=== PATIENT | female | born 1960 | race African-American/Black ===

== ENCOUNTER 2023-02-20 15:18 | Emergency (ER) | payer OTHER ==
[~2023-02-20] VITALS: Ht 170.2 cm; Wt 70.0 kg
[~2023-02-20 15:18] MED LIST: ACET1TAB14 PO; CLON0.2T PO; LEVO25TA7 PO
[2023-02-20 15:27] VITALS: BP 94/69; PULSE 78; RESP 18; TEMP 98.6; O2SAT 98
[2023-02-20] MEDS ORDERED: ONDANSETRON HCL 4MG/2ML INJ IV STA (15:29)
[2023-02-20] MEDS ORDERED: SODIUM CHLORIDE 0.9% 1,000 ML IV ONE (15:30)
[2023-02-20] MEDS ORDERED: FAMOTIDINE 20MG/2ML VIAL IV ONE (15:30)
[2023-02-20 17:04] LABS: PROTHROMBIN TIME 10.4 sec (9.6-11.0)
[2023-02-20 17:08] LABS: BASOPHILS % 0.5 % (0.0-2.0); EOSINOPHILS % 0.7 % (0.0-5.0); HEMATOCRIT. 41.8 % (36.0-48.0); HEMOGLOBIN. 13.3 g/dL (12.0-16.0); LYMPHOCYTES % 13.8 % (20.0-50.0); MEAN CORPUSCULAR HEMOGLOBIN 30.1 pg (28.0-32.0); MEAN CORPUSCULAR HGB CONC 31.9 g/dL (31.0-37.0); MEAN CORPUSCULAR VOLUME 94.5 fL (81.0-99.0); MEAN PLATELET VOLUME 10.9 fl (7.4-10.4); PLATELET 251 x1000/uL (130-400); RED BLOOD CELL COUNT 4.43 mill/uL (4.2-5.4); WHITE BLOOD COUNT 12.2 x1000/uL (4.5-11.0)
[2023-02-20 17:40] LABS: ALANINE AMINOTRANSFERASE 13 IU/L (10-49); ALBUMIN 4.3 g/dL (3.2-4.8); ASPARTATE AMINOTRANSFERASE 25 IU/L (<34); BILIRUBIN TOTAL 0.7 mg/dL (0.1-1.0); CALCIUM 9.7 mg/dL (8.7-10.4); CARBON DIOXIDE 24 mEq/L (21-32); CHLORIDE 103 mEq/L (98-107); CREATININE 0.7 mg/dL (0.6-1.0); ETHANOL BLOOD < 10 mg/dL (<10); GLUCOSE 96 mg/dL (70-105); POTASSIUM 3.6 mEq/L (3.5-5.1); PROTEIN TOTAL 8.4 g/dL (6.0-8.3); SODIUM 138 mEq/L (136-145); UREA NITROGEN BLOOD 7 mg/dL (9-23)
[2023-02-20 17:50] LABS: TROPONIN I HIGH SENSITIVITY < 4 ng/L (3.0-34)
== END 2023-02-20 16:15 | disposition home or self-care (01) ==
LOC: ER 15:18
DX: R19.7 Diarrhea, unspecified (principal); R05.9 Cough, unspecified; M19.90 Unspecified osteoarthritis, unspecified site; I10 Essential (primary) hypertension; E03.9 Hypothyroidism, unspecified; J40 Bronchitis, not specified as acute or chronic
CPT/HCPCS: 80053; 80320; 83690; 85025; 85610; 84484; 36415; 71045; 74176; 99284; J7030; G0480

== ENCOUNTER 2024-01-05 10:41 | Emergency (ER) | payer MEDICAID ==
[~2024-01-05] VITALS: Ht 160 cm; Wt 54.0 kg
[~2024-01-05 10:41] MED LIST changes: -ACET1TAB14 PO; +AMLO10TA80 PO; -CLON0.2T PO; +LOSA25TA26 PO
[2024-01-05 10:52] VITALS: BP 154/105; TEMP 98.9; O2SAT 98
[2024-01-05 10:57] VITALS: PULSE 122; RESP 16; O2SAT 99
[2024-01-05 11:54] LABS: BASOPHILS % 0.7 % (0.0-2.0); DIFFERENTIAL COMMENT 0; EOSINOPHILS % 1.8 % (0.0-5.0); HEMATOCRIT. 46.2 % (36.0-48.0); HEMOGLOBIN. 15.2 g/dL (12.0-16.0); LYMPHOCYTES % 24.3 % (20.0-50.0); MEAN CORPUSCULAR HEMOGLOBIN 32.6 pg (28.0-32.0); MEAN CORPUSCULAR HGB CONC 32.8 g/dL (31.0-37.0); MEAN CORPUSCULAR VOLUME 99.2 fL (81.0-99.0); MEAN PLATELET VOLUME 11.8 fl (7.4-10.4); MONOCYTES % 5.8 % (2.0-8.0); NEUTROPHILS % 67.4 % (40.0-76.0); PLATELET 198 x1000/uL (130-400); RED BLOOD CELL COUNT 4.66 mill/uL (4.2-5.4); RED CELL DISTRIBUTION WIDTH 13.2 % (11.6-14.6); WHITE BLOOD COUNT 4.4 x1000/uL (4.5-11.0)
[2024-01-05 11:58] LABS: CHLORIDE 107 mEq/L (98-107); SODIUM 146 mEq/L (136-145)
[2024-01-05 11:59] LABS: CARBON DIOXIDE 30 mEq/L (21-32)
[2024-01-05 12:00] LABS: CALCIUM 10.3 mg/dL (8.7-10.4)
[2024-01-05 12:04] LABS: CREATININE 0.8 mg/dL (0.6-1.0); GLUCOSE 79 mg/dL (70-105)
[2024-01-05 12:05] LABS: UREA NITROGEN BLOOD 7 mg/dL (9-23)
[2024-01-05 12:59] LABS: TROPONIN I HIGH SENSITIVITY 6 ng/L (3.0-34)
== END 2024-01-05 12:02 | disposition left against medical advice (07) ==
LOC: ER 10:41
DX: R07.89 Other chest pain (principal); Z53.21 Procedure and treatment not carried out due to patient leaving prior to being seen by health care provider
CPT/HCPCS: 36415; 71045; 80048; 83880; 84484; 85025; 93005

== ENCOUNTER 2024-01-24 12:23 | Emergency (ER) | payer MEDICAID, OTHER ==
[~2024-01-24] VITALS: Ht 167.6 cm; Wt 73.0 kg
[2024-01-24 12:24] VITALS: O2SAT 99
[2024-01-24] MEDS: ACETAMINOPHEN 500MG TABLET PO ONE (13:07)
[2024-01-24 14:08] VITALS: BP 116/78; PULSE 70; RESP 18; TEMP 37.00296; O2SAT 99
== END 2024-01-24 14:09 | disposition home or self-care (01) ==
LOC: ER 12:23
DX: M25.561 Pain in right knee (principal); I10 Essential (primary) hypertension; Z86.39 Personal history of other endocrine, nutritional and metabolic disease
CPT/HCPCS: 73562; 99283; Z7610

== ENCOUNTER 2024-02-16 13:11 | Emergency (ER) | payer OTHER ==
[~2024-02-16] VITALS: Ht 154.9 cm; Wt 55.0 kg
[2024-02-16 13:13] VITALS: BP 171/111; PULSE 70; RESP 18; TEMP 98.3; O2SAT 98
[2024-02-16] MEDS ORDERED: TERB30CR8 TP (15:34)
== END 2024-02-16 20:04 | disposition home or self-care (01) ==
LOC: ER 13:11
DX: B35.3 Tinea pedis (principal); I10 Essential (primary) hypertension; E03.9 Hypothyroidism, unspecified; M19.90 Unspecified osteoarthritis, unspecified site; Z79.899 Other long term (current) drug therapy; Z85.9 Personal history of malignant neoplasm, unspecified
CPT/HCPCS: 99283

== ENCOUNTER 2024-05-10 09:08 | Emergency (ER) | payer MEDICAID, OTHER ==
[~2024-05-10] VITALS: Ht 160 cm; Wt 57.0 kg
[~2024-05-10 09:08] MED LIST changes: +TERB30CR8 TP
[2024-05-10 09:40] LABS: BASOPHILS % 0.9 % (0.0-2.0); EOSINOPHILS % 0.7 % (0.0-5.0); HEMOGLOBIN. 12.9 g/dL (12.0-16.0); LYMPHOCYTES % 24.7 % (20.0-50.0); MEAN CORPUSCULAR HEMOGLOBIN 29.2 pg (28.0-32.0); MEAN CORPUSCULAR HGB CONC 32.2 g/dL (31.0-37.0); MEAN CORPUSCULAR VOLUME 90.6 fL (81.0-99.0); MEAN PLATELET VOLUME 9.2 fl (7.4-10.4); MONOCYTES % 3.7 % (2.0-8.0); PLATELET 298 x1000/uL (130-400); RED BLOOD CELL COUNT 4.41 mill/uL (4.2-5.4); RED CELL DISTRIBUTION WIDTH 14.8 % (11.6-14.6); WHITE BLOOD COUNT 6.3 x1000/uL (4.5-11.0)
[2024-05-10 09:48] LABS: CHLORIDE 98 mEq/L (98-107); POTASSIUM 3.1 mEq/L (3.5-5.1)
[2024-05-10 09:49] LABS: SODIUM 137 mEq/L (136-145)
[2024-05-10 09:50] LABS: CALCIUM 9.7 mg/dL (8.7-10.4); CARBON DIOXIDE 26 mEq/L (21-32)
[2024-05-10 09:54] LABS: CREATININE 0.7 mg/dL (0.6-1.0)
[2024-05-10 09:55] LABS: GLUCOSE 122 mg/dL (70-105); UREA NITROGEN BLOOD 9 mg/dL (9-23)
[2024-05-10 09:58] LABS: ETHANOL BLOOD < 10 mg/dL (<10)
[2024-05-10 10:01] LABS: THYROID STIMULATING HORMONE 2.14 uIU/mL (0.55-4.78)
[2024-05-10 10:18] LABS: CLARITY URINE CLEAR (CLEAR); COLOR URINE YELLOW (YELLOW); GLUCOSE URINE NEGATIVE (NEGATIVE); KETONES URINE 2+ (NEGATIVE); LEUKOCYTE ESTERASE URINE NEGATIVE (NEGATIVE); NITRITE URINE NEGATIVE (NEGATIVE); OCCULT BLOOD URINE NEGATIVE (NEGATIVE); PH URINE 6.5 (4.5-8.0); PROTEIN URINE NEGATIVE (NEGATIVE); SPECIFIC GRAVITY URINE 1.015 (1.005-1.030)
[2024-05-10 10:31] LABS: *AMPHETAMINES SCREEN URINE NEGATIVE (NEGATIVE); *BARBITURATES SCREEN URINE NEGATIVE (NEGATIVE); *BENZODIAZEPINES SCREEN URINE NEGATIVE (NEGATIVE); *COCAINE SCREEN URINE NEGATIVE (NEGATIVE); METHADONE URINE SCREEN NEGATIVE (NEGATIVE)
[2024-05-10 10:32] LABS: CANNABINOID URINE SCREEN NEGATIVE (NEGATIVE); ECSTASY MDMA SCREEN URINE NEGATIVE (NEGATIVE); OPIATES URINE SCREEN PRESUMPTIVE POSITIVE (NEGATIVE); PHENCYCLIDINE URINE SCREEN NEGATIVE (NEGATIVE)
[2024-05-11] MEDS: DIPHENHYDRAMINE 50MG CAPSULE PO ONE (00:57)
[2024-05-11 18:00] VITALS: BP 124/73; PULSE 75; RESP 18; TEMP 36.8; O2SAT 98
== END 2024-05-11 19:31 ==
LOC: ER 09:08
DX: R44.0 Auditory hallucinations (principal); I10 Essential (primary) hypertension; Z20.822 Contact with and (suspected) exposure to COVID-19; Z79.899 Other long term (current) drug therapy; Z86.39 Personal history of other endocrine, nutritional and metabolic disease
CPT/HCPCS: 80305; 80048; 81003; 80307; 80329; 80320; 84443; 85025; 36415; 99285; 87426; Q0163; 99283; G0480

== ENCOUNTER 2024-06-10 10:16 | Emergency (ER) | payer MEDICAID ==
[~2024-06-10] VITALS: Ht 154.9 cm; Wt 55.0 kg
[2024-06-10 10:30] VITALS: BP 115/84; PULSE 65; RESP 16; O2SAT 98
[2024-06-10] MEDS ORDERED: ACETAMINOPHEN 325MG TABLET PO ONE (12:45)
== END 2024-06-10 12:55 | disposition home or self-care (01) ==
LOC: ER 10:16
DX: M79.672 Pain in left foot (principal); M79.671 Pain in right foot; M19.90 Unspecified osteoarthritis, unspecified site; J45.909 Unspecified asthma, uncomplicated; I10 Essential (primary) hypertension; F20.9 Schizophrenia, unspecified; E03.9 Hypothyroidism, unspecified; F14.90 Cocaine use, unspecified, uncomplicated; Z96.659 Presence of unspecified artificial knee joint; Z79.899 Other long term (current) drug therapy; X58.XXXA Exposure to other specified factors, initial encounter; Y93.01 Activity, walking, marching and hiking; Y92.89 Other specified places as the place of occurrence of the external cause; Y99.8 Other external cause status
CPT/HCPCS: 99283